=== PATIENT | female | born 1955 ===

== ENCOUNTER 2018-07-30 06:34 | Inpatient (IN) | payer OTHER ==
[~2018-07-30] VITALS: Ht 162.6 cm; Wt 117.9 kg
[~2018-07-30 06:34] MED LIST: ENALAPRIL MALEAT5 MG; GALANTAMINE4 MG/1 ML; METFORMIN HCL500 M2; RYBIX ODT50 MG
[2018-08-08] MEDS ORDERED: INVANZ1 GM IV (08:18)
== END 2018-08-09 17:10 | disposition home or self-care (01) | DRG 872 ==
LOC: ER 06:34 → MEDJ 20:59 → MEDI 20:59 → ICU 08-01 13:24 → MEDJ 08-03 21:14
PROVIDERS: Urology
PROC: 4A033R1 Measurement of Arterial Saturation, Peripheral, Percutaneous Approach (ICD-10-PCS; 2018-08-01)
PROC: BW28ZZZ Computerized Tomography (CT Scan) of Head (ICD-10-PCS; 2018-08-01)
PROC: BW24ZZZ Computerized Tomography (CT Scan) of Chest and Abdomen (ICD-10-PCS; 2018-08-01)
PROC: 3E0F7GC Introduction of Other Therapeutic Substance into Respiratory Tract, Via Natural or Artificial Opening (ICD-10-PCS; 2018-08-01)
PROC: B246ZZZ Ultrasonography of Right and Left Heart (ICD-10-PCS; 2018-08-01)
PROC: BW21Y0Z Computerized Tomography (CT Scan) of Abdomen and Pelvis using Other Contrast, Unenhanced and Enhanced (ICD-10-PCS; 2018-08-01)
PROC: 0WHR8YZ Insertion of Other Device into Genitourinary Tract, Via Natural or Artificial Opening Endoscopic (ICD-10-PCS; principal; 2018-08-05 07:00)
DX: A41.51 Sepsis due to Escherichia coli [E. coli] (principal); S37.022A Major contusion of left kidney, initial encounter; N20.1 Calculus of ureter; N39.0 Urinary tract infection, site not specified; B96.29 Other Escherichia coli [E. coli] as the cause of diseases classified elsewhere; E86.0 Dehydration; M79.7 Fibromyalgia; M15.3 Secondary multiple arthritis; S70.02XA Contusion of left hip, initial encounter; S50.01XA Contusion of right elbow, initial encounter; E11.9 Type 2 diabetes mellitus without complications; G47.33 Obstructive sleep apnea (adult) (pediatric); G47.36 Sleep related hypoventilation in conditions classified elsewhere; F32.89 Other specified depressive episodes; I10 Essential (primary) hypertension

== ENCOUNTER 2018-08-18 13:27 | Emergency (ER) | payer OTHER ==
[~2018-08-18] VITALS: Ht 157.5 cm; Wt 91.6 kg
[~2018-08-18 13:27] MED LIST changes: +INVANZ1 GM IV
== END 2018-08-18 16:08 | disposition home or self-care (01) ==
LOC: ER 13:27
DX: Z45.2 Encounter for adjustment and management of vascular access device (principal)

== ENCOUNTER 2018-12-23 16:52 | Emergency (ER) | payer OTHER ==
[~2018-12-23] VITALS: Ht 157.5 cm; Wt 92.1 kg
[2018-12-23] MEDS ORDERED: MUCINEX100 MG (17:30)
== END 2018-12-23 22:40 | disposition home or self-care (01) ==
LOC: ER 16:52
DX: J45.998 Other asthma (principal)

== ENCOUNTER 2019-01-03 11:38 | Outpatient (CLI) | payer OTHER ==
[~2019-01-03 11:38] MED LIST changes: +MUCINEX100 MG
== END 2019-01-03 11:43 | disposition home or self-care (01) ==
LOC: RAD 501 11:38
DX: N20.1 Calculus of ureter (principal)

== ENCOUNTER → 2019-06-05 | Emergency (ER) | payer OTHER ==
[~2019-06-05] VITALS: Ht 160 cm; Wt 95.3 kg
[~2019-06-05] MED LIST changes: +ASPIR 8181 MG
== END | disposition home or self-care (01) ==
LOC: ER 20:25
DX: N20.1 Calculus of ureter (principal); N20.0 Calculus of kidney

== ENCOUNTER 2019-06-27 11:26 | Outpatient (CLI) | payer OTHER | END 2019-06-29 10:41 | disposition home or self-care (01) | LOC: SONOGRAMA 11:26 | DX: N20.1 Calculus of ureter (principal) ==

== ENCOUNTER 2020-08-20 19:05 | Emergency (ER) | payer OTHER ==
[~2020-08-20] VITALS: Ht 157.5 cm; Wt 97.5 kg
== END 2020-08-20 21:47 | disposition home or self-care (01) ==
LOC: ER 19:05
DX: U07.1 COVID-19 (principal); J12.89 Other viral pneumonia; B33.8 Other specified viral diseases

== ENCOUNTER → 2021-08-17 | Emergency (ER) | payer OTHER ==
[~2021-08-17] VITALS: Ht 162.6 cm; Wt 117.5 kg
== END | disposition home or self-care (01) ==
LOC: ER 16:21
DX: S01.521A Laceration with foreign body of lip, initial encounter (principal); W22.8XXA Striking against or struck by other objects, initial encounter; Y93.89 Activity, other specified; Y92.008 Other place in unspecified non-institutional (private) residence as the place of occurrence of the external cause; Y99.8 Other external cause status

== ENCOUNTER 2023-04-27 19:00 | Emergency (ER) | payer OTHER ==
[~2023-04-27] VITALS: Ht 152.4 cm; Wt 102.5 kg
[2023-04-27] MEDS ORDERED: PRAVASTATIN SOD40 MG PO (19:52)
[2023-04-27] MEDS ORDERED: JANUVIA100 MG PO (19:53)
== END 2023-04-28 00:01 | disposition home or self-care (01) ==
LOC: ER 19:00
PROVIDERS: Emergency Medicine
DX: R07.9 Chest pain, unspecified (principal); Z88.2 Allergy status to sulfonamides; E11.9 Type 2 diabetes mellitus without complications; Z79.84 Long term (current) use of oral hypoglycemic drugs; E78.00 Pure hypercholesterolemia, unspecified

== ENCOUNTER → 2024-08-14 | Emergency (ER) | payer OTHER ==
[~2024-08-14] VITALS: Ht 162.6 cm; Wt 72.6 kg
[~2024-08-14] MED LIST changes: +CEFTRIAXONE SODIUM 1,000 MG VIAL IV ONE; +JANUVIA100 MG PO; +OSELTAMIVIR PHOSPHATE 75 MG CAPSULE PO ONE; +PRAVASTATIN SOD40 MG PO
[2024-08-14 09:06] LABS: HEMATOCRIT 47.8 % (36.0-45.00); HEMOGLOBIN 16.4 g/dL (12.0-15.00); MEAN CELL VOLUME 95.8 fL (80.00-100.00); MEAN CORPUSCULAR HEMOGLOBIN 32.9 pg (27.00-32.0); MEAN CORPUSCULAR HGB CONC 34.4 g/dl (32.0-36.0); PLATELET COUNT 161 K/uL (150-450); RED BLOOD COUNT 4.99 M/uL (4.00-6.00); RED CELL DISTRIBUTION WIDTH 14.2 % (11.5-14.5)
[2024-08-14 09:39] LABS: CALCIUM 8.9 mg/dL (8.5-10.1); CREATININE SERUM 0.91 mg/dL (0.55-1.02); GFR 61.29; POTASSIUM 3.86 mEq/L (3.5-5.1)
[2024-08-14 12:08] LABS: URINE APPEARANCE Cloudy; URINE BILIRRUBIN Negative (NEGATIVE); URINE BLOOD Negative; URINE COLOR Dark Yellow; URINE GLUCOSE Negative (NEGATIVE); URINE KETONE 15 (NEGATIVE); URINE LEUKOCYTE Moderate; URINE NITRATE Negative
[2024-08-14 12:14] LABS: URINE CAST 3.82 uL (0.0-1.40); URINE EPITHELIAL CELLS 18.5 uL (0.0-38.8); URINE RBC 7.8 uL (0.0-20.8)
[2024-08-14 12:33] LABS: URINE PROTEIN 100 (NEGATIVE)
[2024-08-14 12:34] LABS: URINE CRYSTALS FEW /HPF
== END | disposition home or self-care (01) ==
LOC: ER 06:47
PROVIDERS: Emergency Medicine
DX: J10.1 Influenza due to other identified influenza virus with other respiratory manifestations (principal); Z88.8 Allergy status to other drugs, medicaments and biological substances; N39.0 Urinary tract infection, site not specified; Z20.822 Contact with and (suspected) exposure to COVID-19; E78.00 Pure hypercholesterolemia, unspecified; Z79.84 Long term (current) use of oral hypoglycemic drugs; E11.9 Type 2 diabetes mellitus without complications
CPT/HCPCS: 70450; 96365; 99284; J0696

== ENCOUNTER 2025-01-09 08:26 | Emergency (ER) | payer OTHER ==
[~2025-01-09] VITALS: Ht 157.5 cm; Wt 95.3 kg
[~2025-01-09 08:26] MED LIST changes: -CEFTRIAXONE SODIUM 1,000 MG VIAL IV ONE; -OSELTAMIVIR PHOSPHATE 75 MG CAPSULE PO ONE
[2025-01-09] MEDS ORDERED: KETOROLAC TROMETHAMINE 60 MG VIAL IM STA (09:36)
[2025-01-09] MEDS ORDERED: KETOROLAC TROMETHAMINE 60 MG VIAL IM ONE (09:37)
[2025-01-09 10:49] LABS: BASO % 0.9 % (0.1-1.2); EOS # 0.21 (0.04-0.54); EOS % 2.5 % (0.7-7.0); HEMATOCRIT 44.5 % (34.1-44.9); HEMOGLOBIN 15.2 g/dL (11.2-15.7); LYMPH # 1.72 (1.18-3.74); LYMPH % 20.3 % (19.3-53.1); MEAN CORPUSCULAR HEMOGLOBIN 32.4 pg (25.6-32.2); MONO # 0.66 (0.24-0.82); MONO % 7.8 % (4.7-12.5); NEUT # 5.78 (1.56-6.13); NEUT % 68.1 % (34.0-71.1); PLATELET COUNT 189 K/uL (163-369); RED BLOOD COUNT 4.69 M/uL (3.93-5.22); RED CELL DISTRIBUTION WIDTH 12.7 % (11.6-14.4)
[2025-01-09 11:25] LABS: CALCIUM 9.3 mg/dL (8.5-10.1); CREATININE SERUM 0.78 mg/dL (0.55-1.02); GFR 73.01; POTASSIUM 4.41 mEq/L (3.5-5.1)
== END 2025-01-09 14:19 | disposition home or self-care (01) ==
LOC: ER 08:26
PROVIDERS: General Practice
DX: S00.83XA Contusion of other part of head, initial encounter (principal); W18.39XA Other fall on same level, initial encounter; Y93.89 Activity, other specified; Y92.018 Other place in single-family (private) house as the place of occurrence of the external cause; M54.2 Cervicalgia; I10 Essential (primary) hypertension; M19.90 Unspecified osteoarthritis, unspecified site; K80.20 Calculus of gallbladder without cholecystitis without obstruction; M85.88 Other specified disorders of bone density and structure, other site; Z88.8 Allergy status to other drugs, medicaments and biological substances; E11.9 Type 2 diabetes mellitus without complications; Z79.84 Long term (current) use of oral hypoglycemic drugs
CPT/HCPCS: 70450; 70490; 71250; 73521; 73560; 96372; 99284; J1885